=== PATIENT | female | born 1975 | race American Indian/Alaskan Native ===

== ENCOUNTER 2016-11-05 10:12 | Emergency (ER) | payer OTHER | END 2016-11-05 13:18 | disposition home or self-care (01) | DX: N23 Unspecified renal colic (principal); R03.0 Elevated blood-pressure reading, without diagnosis of hypertension; E28.2 Polycystic ovarian syndrome; Z90.49 Acquired absence of other specified parts of digestive tract ==

== ENCOUNTER 2018-02-02 21:44 | Emergency (ER) | payer OTHER ==
[2018-02-02 21:58] VITALS: BP 147/97
--- NOTE | 2018-02-02 22:46 | XRAY Preliminary Report ---
Exam: XR FOOT 3 VIEW LT IMPRESSION: Normal foot radiography. [facility] SITE ID: [id number]
--- NOTE | 2018-02-02 22:46 | XRAY Report ---
EXAM: LEFT FOOT RADIOGRAPHY EXAM DATE: 02/02/2018 10:36 PM. CLINICAL HISTORY: L foot pain, unknown if injury. COMPARISON: None. TECHNIQUE: 3 views. FINDINGS: Bones: Normal. No fractures or bone lesions. Joints: Normal. No subluxations. Soft Tissues: Normal. No soft tissue swelling. IMPRESSION: Normal foot radiography. [facility] Referring Provider Line: [phone] SITE ID: [id number]
--- NOTE | 2018-02-02 22:59 | ED Physician Documentation ---
History of Present Illness - Stated complaint Stated Complaint: LT FOOT PX - Chief complaint Chief Complaint: Ext Problem - History obtained from History obtained from: Patient - History of Present Illness Timing: Today, How many days ago (3) Pain level max: 7 Pain level now: 4 Improved by: rest Worsened by: walking - Additonal information Additional information: Patient is a 42-year-old female who presents to the emergency department with worsening left foot pain over the past 3-4 days. She does not recall any specific injury, states it is worse with walking and better with rest. States she is now unable to walk without a significant limp. States she has fracture either her left or right foot in the past but is unclear which. 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 - Present Medications Home Medications: Ambulatory Orders Medication Instructions Recorded Confirmed metFORMIN [Glucophage] 500 mg PO BID 06/27/14 02/02/18 Acyclovir 400 mg ORAL BID 11/05/16 02/02/18 Bupropion HCl [Bupropion Xl] 150 mg ORAL DAILY 11/05/16 02/02/18 cloNIDine HCl [Clonidine HCl] 0.1 mg ORAL QPM 11/05/16 02/02/18 Loratadine [Claritin] 1 tab PO DAILY 02/02/18 02/02/18 - Allergies Allergies/Adverse Reactions: Allergies Allergy/AdvReac Type Severity Reaction Status Date / Time hydromorphone [From Dilaudid] AdvReac Unknown Verified 02/02/18 22:07 - Social History Does the pt smoke?: No Smoking Status: Former smoker Does the pt drink ETOH?: Yes ETOH Use: Liquor Does the pt have substance abuse?: No - Immunizations Immunizations are current?: Yes - POLST Patient has POLST: No PD ED PE NORMAL - Vitals Vital signs reviewed: Yes - General General: Alert and oriented X 3, No acute distress - Derm Derm: Warm and dry - Extremities Extremities: Other (Left foot - Mild tenderness along the plantar aspect of the left foot. Pain greatly increases with flexion of the ankle as well as extension of the great toe.She also has mild bony tenderness over the first metatarsal. No skin changes. No deformity. Neurovascularly intact.) - Neuro Neuro: Alert and oriented X 3 - Psych Psych: Normal mood, Normal affect Results - Vitals Vitals: Vital Signs - 24 hr 02/02/18 21:50 Temperature 36.2 C L Heart Rate 89 Respiratory 18 Rate Blood Pressure 147/97 H O2 Saturation 98 Oxygen O2 Source Room air - Rads (name of study) Left foot x-ray Radiology: Prelim report reviewed, EMP read contemporaneously, See rad report ( Normal) PD MEDICAL DECISION MAKING - ED course Complexity details: reviewed results, re-evaluated patient, considered differential, d/w patient ED course: Patient is a 42-year-old female who presents to the emergency department what appears to be a left foot sprain. Does not appear consistent with plantar fasciitis at this time. Placed in a walking boot for comfort is a postoperative shoe did not provide enough support. This provided her the needed relief. She will utilize Motrin and Tylenol for pain at home. Counseled to remove her foot from the boot in the next 2-3 days and start to gently range the foot and ankle, gradually increasing her weightbearing status. We will have her follow-up with her PCP for further care. Patient counseled regarding signs and symptoms for which I believe and urgent re-evaluation would be necessary. Patient with good understanding of and agreement to plan and is comfortable going home at this time This document was made in part using voice recognition software. While efforts are made to proofread this document, sound alike and grammatical errors may occur. Departure - Departure Disposition: 01 Home, Self Care Clinical Impression: Foot sprain Qualifiers: Encounter type: initial encounter Laterality: left Qualified Code(s): S93.602A - Unspecified sprain of left foot, initial encounter Condition: Good Instructions: ED Sprain Foot Follow-Up: CLARISSA FOREMAN [Primary Care Provider] - Within 1 week Comments: Wear the boot for the next 3-4 days, then start to gently move your foot and ankle. You may bear weight as tolerated. Follow-up with your doctor for further care. You may use Motrin or Tylenol as needed for pain. Discharge Date/Time: 02/02/18 23:25
== END 2018-02-02 23:25 | disposition home or self-care (01) ==
LOC: ED 21:44
DX: S93.602A Unspecified sprain of left foot, initial encounter (principal); X58.XXXA Exposure to other specified factors, initial encounter; Z87.891 Personal history of nicotine dependence
CPT/HCPCS: 99283

== ENCOUNTER 2018-08-07 08:40 | Emergency (ER) | payer OTHER ==
[2018-08-07] MEDS ORDERED: KETOROLAC 60 MG/2 ML VIAL IM STA (09:05)
[2018-08-07] MEDS ORDERED: LIDOCAINE PATCH 5% TOP PRN (09:05)
--- NOTE | 2018-08-07 09:18 | ED Physician Documentation ---
History of Present Illness - Stated complaint Stated Complaint: RT SIDE BACK PX - Chief complaint Chief Complaint: Back Pain - Additonal information Additional information: hx from pt 42 y/o f in good health recent plane travel but no leg swelling or hx DVT was in good health having totally normally day standing around talking to coworkers when she was suddenly struck by severe upper right back pain worse with breathing states feels like she is being stabbed with a spike no fever cough etc recently no ant chest pain no abd pain denies preg s/p tubal Review of Systems Constitutional: denies: Fever Throat: denies: Sore throat Cardiac: denies: Chest pain / pressure Respiratory: denies: Dyspnea, Cough GI: denies: Abdominal Pain : reports: Control (tubal). 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 - Present Medications Home Medications: Ambulatory Orders Medication Instructions Recorded Confirmed metFORMIN [Glucophage] 500 mg PO BID 06/27/14 02/02/18 Acyclovir 400 mg ORAL BID 11/05/16 02/02/18 Bupropion HCl [Bupropion Xl] 150 mg ORAL DAILY 11/05/16 02/02/18 cloNIDine HCl [Clonidine HCl] 0.1 mg ORAL QPM 11/05/16 02/02/18 Loratadine [Claritin] 1 tab PO DAILY 02/02/18 02/02/18 Cyclobenzaprine [Flexeril] 10 mg PO TID PRN #20 tablet 08/07/18 Ibuprofen [Motrin] 400 mg PO Q6H PRN #30 tablet 08/07/18 Lidocaine Patch 5% [Lidoderm Patch] 1 each TOP DAILY PRN #10 patch 08/07/18 - Allergies Allergies/Adverse Reactions: Allergies Allergy/AdvReac Type Severity Reaction Status Date / Time hydromorphone [From Dilaudid] AdvReac Unknown Verified 08/07/18 08:47 - Social History Does the pt smoke?: No Smoking Status: Never smoker Does the pt drink ETOH?: Yes Does the pt have substance abuse?: No - Immunizations Immunizations are current?: Yes - POLST Patient has POLST: No PD ED PE NORMAL - Vitals Vital signs reviewed: Yes - Cardiac Cardiac: RRR - Respiratory Respiratory: No respiratory distress, Clear bilaterally - Abdomen Abdomen: Soft, Non tender - Back Back: Other (marked TTP R upper back just lateral of midline, no focal spine TTP redness swelling) - Derm Derm: Normal color - Extremities Extremities: No edema, No calf tenderness / cord - Neuro Neuro: No motor deficit, No sensory deficit, Normal speech Results - Vitals Vitals: Vital Signs - 24 hr 08/07/18 08/07/18 08:45 10:17 Temperature 36.4 C L Heart Rate 86 58 L Respiratory 15 16 Rate Blood Pressure 133/80 H 116/74 O2 Saturation 95 99 Oxygen O2 Source Nasal cannula - Labs Labs: Laboratory Tests 08/07/18 08/07/18 08/07/18 09:28 09:29 09:29 D-Dimer < 200.0 L Creatinine 0.6 Estimated GFR (MDRD) 110 Urine Color YELLOW Urine Clarity CLEAR Urine pH 6.0 Ur Specific [place] 1.010 Urine Protein NEGATIVE Urine Glucose (UA) NEGATIVE Urine Ketones NEGATIVE Urine Occult Blood TRACE-INTA Urine Nitrite NEGATIVE Urine Bilirubin NEGATIVE Urine Urobilinogen 0.2 (NORMAL) Ur Leukocyte Esterase NEGATIVE Ur Microscopic Review NOT INDICATED Urine Culture Comments NOT INDICATED Urine HCG, Qual NEGATIVE - Rads (name of study) CXR Radiology: See rad report (nl, no pneumo, nl mediastinum, no cap or effusion) PD MEDICAL DECISION MAKING - ED course ED course: abrupt onset upper right back pain no abd pain TTP to suggest a referred pain from abd process plane trip but no leg swelling and neg d dimer so doubt PE considered dissection - but aorta appears nl on CXR and pt does not have risk factors and she is very TTP upper right back and feels better when she stays still in a certain position - so feel this to be unlikely as well based on exam, likely muscular though no inciting event to cause same will tx symptomatically when dc pt I have her a note for work and 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 so were moving boxes so perhaps that is how she got her muscular back pain she felt much better after pain meds in ED SO driving Departure - Departure Disposition: 01 Home, Self Care Clinical Impression: Back pain Qualifiers: Back pain location: thoracic back pain Chronicity: acute Back pain laterality: right Qualified Code(s): M54.6 - Pain in thoracic spine Condition: Good Instructions: ED Neck Back Pain General Follow-Up: CLARISSA FOREMAN [Primary Care Provider] - Prescriptions: Cyclobenzaprine [Flexeril] 10 mg PO TID PRN #20 tablet PRN Reason: Spasms Ibuprofen [Motrin] 400 mg PO Q6H PRN #30 tablet PRN Reason: Pain Lidocaine Patch 5% [Lidoderm Patch] 1 each TOP DAILY PRN #10 patch PRN Reason: Pain Comments: The blood test to see if you might have a blood clot in your lungs was negative The xray did not show a collapsed lung or aneurysm of your aorta. You are quite tender to palpate on exam - so i think this pain is soft tissue / muscular I have prescribed symptomatic medications to ease the pain and written you a note for work Forms: Activity restrictions
[2018-08-07 09:41] LABS: CREATININE 0.6 mg/dL (0.4-1.0)
[2018-08-07 09:55] LABS: BILIRUBIN,URINE NEGATIVE (NEGATIVE); GLUCOSE, URINE (UA) NEGATIVE (NEGATIVE); KETONES,URINE (UA) NEGATIVE (NEGATIVE); LEUKOCYTE ESTERASE, URINE NEGATIVE (NEGATIVE); NITRITE,URINE NEGATIVE (NEGATIVE); OCCULT BLOOD,URINE TRACE-INTA (NEGATIVE); PROTEIN,URINE NEGATIVE (NEGATIVE); UROBILINOGEN,URINE 0.2 (NORMAL) E.U./dL (NORMAL)
[2018-08-07 09:58] LABS: CLARITY,URINE CLEAR (CLEAR); HCG UR QUAL NEGATIVE
--- NOTE | 2018-08-07 10:15 | XRAY Report ---
Reason: severe r upper pleuritic back pain Procedure Date: 08/07/2018 Accession Number: [id number] / [id number] Procedure: XR - Chest 2 View X-Ray CPT Code: 07587 FULL RESULT: EXAM: CHEST RADIOGRAPHY EXAM DATE: 08/07/2018 09:58 AM. CLINICAL HISTORY: Severe right upper pleuritic back pain. COMPARISON: 07/12/2014. TECHNIQUE: 2 views. FINDINGS: Lungs/Pleura: No focal opacities evident. No pleural effusion. No pneumothorax. Normal volumes. Mediastinum: Heart and mediastinal contours are unremarkable. Other: Status post cholecystectomy is noted. IMPRESSION: Normal 2-view chest radiography. [facility]
[2018-08-07 10:17] VITALS: BP 116/74
[2018-08-07] MEDS ORDERED: CYCLOBENZAPRINE 10 MG TABLET PO STA (10:57)
== END 2018-08-07 11:06 | disposition home or self-care (01) ==
LOC: ED 08:40
DX: M54.6 Pain in thoracic spine (principal)
CPT/HCPCS: 36415; 71046; 81003; 81025; 82565; 85379; 96372; 99283; A9270; 81001; 87086

== ENCOUNTER 2018-12-18 18:00 | Emergency (ER) | payer OTHER ==
[2018-12-18 18:18] VITALS: BP 131/92
[2018-12-18] MEDS ORDERED: IBUPROFEN 800 MG TABLET PO STA (18:46)
--- NOTE | 2018-12-18 18:47 | ED Physician Documentation ---
PD HPI URI - Stated complaint Stated Complaint: FLU SYMPT/COUGH X3 WEEKS - Chief complaint Chief Complaint: Resp - History obtained from History obtained from: Patient - History of Present Illness Timing - onset: Today (She has had a cough for a month, it really was not too bad it was getting better, but got a little worse 2 days ago with more runny nose. Today suddenly started having chills and sweats and body aches as well as difficulty focusing on things.) Review of Systems Constitutional: reports: Fever, Chills, Myalgias, Fatigue Eyes: denies: Loss of vision Ears: denies: Drainage/discharge Nose: reports: Rhinorrhea / runny nose Throat: denies: Sore throat Respiratory: reports: Cough. 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 - Present Medications Home Medications: Ambulatory Orders Medication Instructions Recorded Confirmed metFORMIN [Glucophage] 500 mg PO BID 06/27/14 02/02/18 Acyclovir 400 mg ORAL BID 11/05/16 02/02/18 Bupropion HCl [Bupropion Xl] 150 mg ORAL DAILY 11/05/16 02/02/18 cloNIDine HCl [Clonidine HCl] 0.1 mg ORAL QPM 11/05/16 02/02/18 Loratadine [Claritin] 1 tab PO DAILY 02/02/18 02/02/18 Cyclobenzaprine [Flexeril] 10 mg PO TID PRN #20 tablet 08/07/18 Ibuprofen [Motrin] 400 mg PO Q6H PRN #30 tablet 08/07/18 Lidocaine Patch 5% [Lidoderm Patch] 1 each TOP DAILY PRN #10 patch 08/07/18 Oseltamivir [Tamiflu] 75 mg PO BID #10 capsule 12/18/18 guaiFENesin/CODEINE [Robitussin AC] 5 - 10 ml PO Q6H PRN #120 ml 12/18/18 - Allergies Allergies/Adverse Reactions: Allergies Allergy/AdvReac Type Severity Reaction Status Date / Time hydromorphone [From Dilaudid] AdvReac Unknown Verified 12/18/18 18:17 - Social History Does the pt smoke?: No Smoking Status: Never smoker Does the pt drink ETOH?: Yes Does the pt have substance abuse?: No - Immunizations Immunizations are current?: Yes - POLST Patient has POLST: No PD ED PE NORMAL - Vitals Vital signs reviewed: Yes (tachy) - General General: Alert and oriented X 3, No acute distress - HEENT HEENT: PERRL, Ears normal, Pharynx benign - Neck Neck: Supple, no meningeal sign, No bony TTP - Cardiac Cardiac: RRR, No murmur - Respiratory Respiratory: No respiratory distress, Clear bilaterally - Abdomen Abdomen: Non tender - Derm Derm: No rash - Neuro Neuro: Alert and oriented X 3, Normal speech Results - Vitals Vitals: Vital Signs - 24 hr 12/18/18 12/18/18 18:15 18:17 Temperature 37.9 C H Heart Rate 126 H Respiratory 20 16 Rate Blood Pressure 131/92 H O2 Saturation 98 Oxygen O2 Source Room air - Labs Labs: Laboratory Tests 12/18/18 18:40 Influenza A (Rapid) POSITIVE H Influenza B (Rapid) Negative - Rads (name of study) 2v chest Radiology: EMP read contemporaneously (NAD) Departure - Departure Disposition: Home, Self Care Clinical Impression: Influenza A Condition: Good Record reviewed to determine appropriate education?: Yes Instructions: Medication: Tamiflu (Oseltamivir), ED Flu Prescriptions: guaiFENesin/CODEINE [Robitussin AC] 5 - 10 ml PO Q6H PRN #120 ml PRN Reason: Cough Oseltamivir [Tamiflu] 75 mg PO BID #10 capsule Comments: Recheck with your doctor on Saturday if not better, return for new or worsening symptoms. Continue drinking plenty of fluids and taking ibuprofen as needed for the fevers and aches. Forms: Activity restrictions
--- NOTE | 2018-12-18 19:13 | XRAY Report ---
Reason: cough Procedure Date: 12/18/2018 Accession Number: [id number] / [id number] Procedure: XR - Chest 2 View X-Ray CPT Code: 03662 FULL RESULT: EXAM: CHEST RADIOGRAPHY EXAM DATE: 12/18/2018 07:04 PM. CLINICAL HISTORY: Cough. COMPARISON: CHEST 2 VIEW 08/07/2018 9:40 AM. TECHNIQUE: 2 views. FINDINGS: Lungs/Pleura: No focal opacities evident. No pleural effusion. No pneumothorax. Normal volumes. Mediastinum: Heart and mediastinal contours are unremarkable. Other: None. IMPRESSION: Negative chest. Clear lungs. [facility]
== END 2018-12-18 19:22 | disposition home or self-care (01) ==
LOC: ED 18:00
DX: J10.1 Influenza due to other identified influenza virus with other respiratory manifestations (principal)
CPT/HCPCS: 71046; 87275; 87276; 99283; A9270

== ENCOUNTER 2020-11-24 08:48 | Emergency (ER) | payer OTHER ==
--- NOTE | 2020-11-24 09:30 | XRAY Report ---
PROCEDURE: Foot 3 View RT INDICATIONS: Trauma TECHNIQUE: 3 views of the foot were acquired. COMPARISON: None FINDINGS: Bones: No fractures or dislocations. No suspicious bony lesions. Plantar calcaneal bone spur. Soft tissues: No tibiotalar joint effusion. Achilles tendon appears normal. IMPRESSION: No fracture. No acute osseous lesion. If there are persistent symptoms or continued clinical concern for pathology, then repeat plain film radiographs (7-10 days) or advanced imaging (CT, MR, bone scan) should be considered for further evaluation. Reviewed by: Anne Oneal MD, PhD on 11/24/2020 9:29 AM [facility] Approved by: Anne Oneal MD, PhD on 11/24/2020 9:29 AM [facility] Station ID: [id number]
--- NOTE | 2020-11-24 10:12 | ED Physician Documentation ---
History of Present Illness - Stated complaint Stated Complaint: R FOOT PX - Chief complaint Chief Complaint: Ext Problem - History obtained from History obtained from: Patient - Additonal information Additional information: 45-year-old woman history of PCOS on Metformin, no history of diabetes or other immunocompromising conditions presents with right first toe pain sudden onset when getting up from her desk chair 2 days ago. Atraumatic, constant, localized to the right first toe, worse with bending the toe, associated with worsening swelling, mild to moderate severity. Denies fevers, other injury, numbness or weakness. Review of Systems Constitutional: denies: Fever Skin: denies: Lesions Musculoskeletal: reports: Extremity pain, Joint pain Neurologic: denies: Focal weakness PD PAST MEDICAL HISTORY - Past Medical History Past Medical History: Yes Cardiovascular: Murmur Psych: Depression, Post traumatic stress disorder Musculoskeletal: Osteoarthritis - Past Surgical History Past Surgical History: Yes General: Cholecystectomy /LOT BOSS: Tubal ligation - Present Medications Home Medications: Ambulatory Orders Medication Instructions Recorded Confirmed metFORMIN [Glucophage] 500 mg PO BID 06/27/14 11/24/20 Acyclovir 400 mg ORAL BID 11/05/16 11/24/20 buPROPion HCL [Bupropion Xl] 150 mg ORAL DAILY 11/05/16 11/24/20 cloNIDine HCL [Clonidine HCl] 0.1 mg ORAL QPM 11/05/16 11/24/20 Loratadine [Claritin] 1 tab PO DAILY 02/02/18 11/24/20 Ibuprofen [Motrin] 400 mg PO Q6H PRN #30 tablet 08/07/18 11/24/20 - Allergies Allergies/Adverse Reactions: Allergies Allergy/AdvReac Type Severity Reaction Status Date / Time hydromorphone [From Dilaudid] AdvReac Unknown Verified 11/24/20 08:59 - Social History Does the pt smoke?: No Smoking Status: Never smoker Does the pt drink ETOH?: Yes Does the pt have substance abuse?: No - Immunizations Immunizations are current?: Yes - POLST Patient has POLST: No PD ED PE NORMAL - Vitals Vital signs reviewed: Yes - General General: Alert and oriented X 3, No acute distress, Well developed/nourished - Derm Derm: Normal color, Warm and dry, Other (mild ecchymosis to R first toe with mild swelling to dorsum of toe) - Extremities Extremities: No deformity, Other (tender with flexion of R first toe) - Neuro Neuro: Alert and oriented X 3, No motor deficit, No sensory deficit, Other ( normal sensation. 2+ DP and PT pulses) Results - Vitals Vitals: Vital Signs - 24 hr 11/24/20 08:56 Temperature 36.3 C L Heart Rate 64 Respiratory 16 Rate Blood Pressure 145/97 H O2 Saturation 100 Oxygen O2 Source Room air PD MEDICAL DECISION MAKING - ED course ED course: 45-year-old woman presents with likely ligament strain. Xrays show no fracture. Ambulatory on the toe without difficulty. Discussed conservative home management techniques and gave strict return precautions. Patient will follow up with orthopedics. Departure - Departure Disposition: 01 Home, Self Care Clinical Impression: Swelling of toe of right foot, Toe pain, right Condition: Good Instructions: ED RICE Follow-Up: Ignacio Lugo MD [Provider Admit Priv/Credential] - Comments: You were seen in the emergency department for right first toe swelling, and pain. Your x-rays did not show a break in the bone. It is likely that this is a ligament strain. Follow the directions we discussed and return to the emergency department if you have any signs of infection that we went over, or new or worsening symptoms. follow up with orthopedics in 1 week.
[2020-11-24 10:22] VITALS: BP 134/78
== END 2020-11-24 10:22 | disposition home or self-care (01) ==
LOC: ED 08:48
DX: M79.674 Pain in right toe(s) (principal); R22.41 Localized swelling, mass and lump, right lower limb
CPT/HCPCS: 99282; 99283

== ENCOUNTER 2022-08-09 12:57 | Emergency (ER) | payer OTHER ==
[2022-08-09 13:45] LABS: BASOPHILS # (AUTO) 0.1 10^3/uL (0.0-0.1); BASOPHILS % (AUTO) 1.2 %; EOSINOPHILS # (AUTO) 0.1 10^3/uL (0.0-0.7); EOSINOPHILS % (AUTO) 3.1 %; HCT - HEMATOCRIT 38.8 % (37.0-47.0); HGB - HEMOGLOBIN 12.8 g/dL (12.0-16.0); LYMPHOCYTES # (AUTO) 1.3 10^3/uL (1.5-3.5); LYMPHOCYTES % (AUTO) 31.5 %; MEAN CORPUSCULAR HEMOGLOBIN 33.3 pg (27.0-31.0); MEAN PLATELET VOLUME 10.5 fL (7.9-10.8); MONOCYTES # (AUTO) 0.4 10^3/uL (0.0-1.0); MONOCYTES % (AUTO) 10.1 %; NEUTROPHILS # (AUTO) 2.3 10^3/uL (1.5-6.6); NEUTROPHILS % (AUTO) 53.9 %; PLT - PLATELET COUNT 271 10^3/uL (130-450); RED BLOOD COUNT 3.84 10^6/uL (4.20-5.40); WHITE BLOOD COUNT 4.3 x10^3/uL (4.8-10.8)
--- NOTE | 2022-08-09 13:59 | XRAY Report ---
PROCEDURE: Chest 1 View X-Ray INDICATIONS: Chest pain TECHNIQUE: One view of the chest was acquired. COMPARISON: 12/10/2018 FINDINGS: Surgical changes and devices: None. Lungs and pleura: No pleural effusions or pneumothorax. Lungs are clear. Mediastinum: Mediastinal contours appear normal. Heart size is normal. Bones and chest wall: No suspicious bony lesions. Overlying soft tissues appear unremarkable. IMPRESSION: No acute radiographic abnormality. Reviewed by: Marcio Marroquin MD on 08/09/2022 1:58 PM PDT Approved by: Marcio Marroquin MD on 08/09/2022 1:58 PM PDT Station ID: [id number]
[2022-08-09 14:04] LABS: ALBUMIN 4.2 g/dL (3.2-5.5); ALBUMIN/GLOBULIN RATIO 1.4 (1.0-2.2); BILIRUBIN,TOTAL 0.3 mg/dL (0.2-1.0); CALCIUM 9.8 mg/dL (8.5-10.3); CREATININE 0.7 mg/dL (0.4-1.0); POTASSIUM 4.3 mmol/L (3.5-5.0); TOTAL PROTEIN 7.3 g/dL (6.7-8.2)
[2022-08-09] MEDS ORDERED: FAMOTIDINE 20 MG TABLET PO STA (14:44)
[2022-08-09] MEDS ORDERED: SUCRALFATE 1 GM/10 ML UDC PO STA (14:44)
[2022-08-09] MEDS ORDERED: LIDOCAINE VISCOUS 2% 15 ML UDC MM STA (14:44)
[2022-08-09] MEDS ORDERED: MAG HYDROX/AL HYDROX/SIMETH 30 ML UDC PO STA (14:44)
--- NOTE | 2022-08-09 14:52 | ED Physician Documentation ---
History of Present Illness - Stated complaint Stated Complaint: CHEST PX - Chief complaint Chief Complaint: Cardiac - History obtained from History obtained from: Patient, Family - History of Present Illness Timing: How many hours ago (3) Pain level max: 9 Pain level now: 2 - Additonal information Additional information: Patient is a 46-year-old female who presents to the emergency department complaining of chest pain. She states that it started today at about noon. She states it felt like someone was squeezing her center of her chest. Nothing seemed to make it better or worse. Lasted for about an hour. She states now it just feels like there is a dull, aching pressure. Does not have any history of cardiac disease that she is aware of. She has had a cholecystectomy in the past. She states she occasionally uses alcohol. She does not smoke cigarettes daily. She is diabetic. Nothing seemed to make it better or worse. Review of Systems Constitutional: denies: Fever, Chills Throat: denies: Sore throat Cardiac: reports: Chest pain / pressure (Center of the chest, nonradiating, feels like a squeezing). 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 - Present Medications Home Medications: Ambulatory Orders Medication Instructions Recorded Confirmed metFORMIN [Glucophage] 500 mg PO BID 06/27/14 11/24/20 Acyclovir 400 mg ORAL BID 11/05/16 11/24/20 buPROPion HCL [Bupropion Xl] 150 mg ORAL DAILY 11/05/16 11/24/20 cloNIDine HCL [Clonidine HCl] 0.1 mg ORAL QPM 11/05/16 11/24/20 Loratadine [Claritin] 1 tab PO DAILY 02/02/18 11/24/20 Ibuprofen [Motrin] 400 mg PO Q6H PRN #30 tablet 08/07/18 11/24/20 Esomeprazole Magnesium [Nexium] 40 mg PO DAILY #30 cap 08/09/22 Sucralfate [Carafate] 1 gm PO ACHS #60 tablet 08/09/22 - Allergies Allergies/Adverse Reactions: Allergies Allergy/AdvReac Type Severity Reaction Status Date / Time hydromorphone [From Dilaudid] AdvReac Unknown Verified 08/09/22 13:24 - Social History Does the pt smoke?: No Smoking Status: Never smoker Does the pt drink ETOH?: Yes Does the pt have substance abuse?: No - Immunizations Immunizations are current?: Yes - POLST Patient has POLST: No PD ED PE NORMAL - Vitals Vital signs reviewed: Yes - General General: Alert and oriented X 3, No acute distress - HEENT HEENT: PERRL, Moist mucous membranes - Neck Neck: Supple, no meningeal sign - Cardiac Cardiac: RRR, Strong equal pulses - Respiratory Respiratory: No respiratory distress, Clear bilaterally - Abdomen Abdomen: Normal bowel sounds, Soft, Non distended, Other (Tender to palpation epigastric without peritoneal signs.) - Derm Derm: Warm and dry - Extremities Extremities: No edema, No calf tenderness / cord - Neuro Neuro: Alert and oriented X 3 - Psych Psych: Normal mood, Normal affect Results - Vitals Vitals: Vital Signs - 24 hr 08/09/22 08/09/22 08/09/22 13:20 13:54 14:24 Temperature 36.7 C Heart Rate 79 73 81 Respiratory 14 19 18 Rate Blood Pressure 151/97 H 140/87 H 133/88 H O2 Saturation 100 98 99 08/09/22 08/09/22 08/09/22 15:00 15:30 17:07 Temperature Heart Rate 68 68 73 Respiratory 21 19 20 Rate Blood Pressure 132/88 H 135/89 H 134/90 H O2 Saturation 100 99 100 Oxygen O2 Source Room air - EKG (time done) 1329 Rate: Rate (enter#) (71) Rhythm: NSR [place]: Normal Intervals: Normal [place] QRS: Normal Ischemia: Normal ST segments - Labs Labs: Laboratory Tests 08/09/22 08/09/22 08/09/22 13:41 13:41 13:41 WBC 4.3 L RBC 3.84 L Hgb 12.8 Hct 38.8 MCV 101.0 H MCH 33.3 H MCHC 33.0 RDW 13.0 Plt Count 271 MPV 10.5 Neut # (Auto) 2.3 Lymph # (Auto) 1.3 L [place] # (Auto) 0.4 Eos # (Auto) 0.1 Baso # (Auto) 0.1 Absolute Nucleated RBC 0.00 Nucleated RBC % 0.0 Sodium 144 Potassium 4.3 Chloride 107 Carbon Dioxide 30 Anion Gap 7.0 BUN 14 Creatinine 0.7 Estimated GFR (MDRD) 90 Glucose 95 Calcium 9.8 Total Bilirubin 0.3 AST 15 ALT 13 Alkaline Phosphatase 65 Troponin I High Sens < 2.3 L Total Protein 7.3 Albumin 4.2 Globulin 3.1 Albumin/Globulin Ratio 1.4 Lipase 54 H 08/09/22 15:30 WBC RBC Hgb Hct MCV MCH MCHC RDW Plt Count MPV Neut # (Auto) Lymph # (Auto) [place] # (Auto) Eos # (Auto) Baso # (Auto) Absolute Nucleated RBC Nucleated RBC % Sodium Potassium Chloride Carbon Dioxide Anion Gap BUN Creatinine Estimated GFR (MDRD) Glucose Calcium Total Bilirubin AST ALT Alkaline Phosphatase Troponin I High Sens < 2.3 L Total Protein Albumin Globulin Albumin/Globulin Ratio Lipase - Rads (name of study) Chest x-ray Radiology: Final report received, EMP read contemporaneously, See rad report (No acute abnormality) PD MEDICAL DECISION MAKING - ED course Complexity details: reviewed results, re-evaluated patient, considered differential (No ST elevation PA, no aortic dissection, no PE, no tension pneumothorax, no aortic aneurysm), d/w patient ED course: Patient is well-appearing, nontoxic. Afebrile. No acute findings on EKG. Negative high-sensitivity troponin x2. Symptoms improved with GI cocktail. Possible GERD? We will start her on medication for this at home and have her follow-up with her doctor for a cardiac stress test and endoscopy. Patient counseled regarding signs and symptoms for which I believe and urgent re- evaluation would be necessary. Patient with good understanding of and agreement to plan and is comfortable going home at this time This document was made in part using voice recognition software. While efforts are made to proofread this document, sound alike and grammatical errors may occur. Departure - Departure Disposition: Home, Self Care Clinical Impression: Chest pain Qualifiers: Chest pain type: unspecified Qualified Code(s): R07.9 - Chest pain, unspecified GERD (gastroesophageal reflux disease) Qualifiers: Esophagitis presence: without esophagitis Qualified Code(s): K21.9 - Gastro-esophageal reflux disease without esophagitis Condition: Good Instructions: ED GERD Follow-Up: TAYA FINLEY MD [Primary Care Provider] - Within 1 week Prescriptions: Sucralfate [Carafate] 1 gm PO ACHS #60 tablet Esomeprazole Magnesium [Nexium] 40 mg PO DAILY #30 cap Comments: Your prescriptions were sent to the [facility] pharmacy. Please use the medications as prescribed. Return if you worsen. Please follow-up with your doctor for a cardiac stress test as well. Your EKG, chest x-ray and laboratory testing do not show any acute abnormalities today. Your doctor should also refer you for an endoscopy to evaluate for GERD/ulcers. Discharge Date/Time: 08/09/22 17:08
[2022-08-09 17:08] VITALS: BP 134/90
== END 2022-08-09 17:08 | disposition home or self-care (01) ==
LOC: ED 12:57
DX: R07.9 Chest pain, unspecified (principal); K21.9 Gastro-esophageal reflux disease without esophagitis
CPT/HCPCS: 36415; 71045; 80053; 83690; 84484; 85025; 93005; 99284; A9270

== ENCOUNTER 2022-09-02 00:17 | Outpatient (CLI) | payer OTHER | END 2022-09-02 23:59 | disposition left against medical advice (07) | LOC: EMS 00:17 | DX: R45.851 Suicidal ideations (principal) ==

== ENCOUNTER 2022-11-28 22:23 | Outpatient (CLI) | payer OTHER ==
--- NOTE | 2022-11-29 14:11 | Ultrasound Report ---
PROCEDURE: Pelvic w/Transvaginal INDICATIONS: ABN UTERINE BLEEDING TECHNIQUE: Real-time scanning was performed of the pelvic organs, with image documentation. Additional endovagi nal scanning was necessary due to incomplete visualization of the adnexal and endometrial structures by transabdominal scanning. COMPARISON: None. FINDINGS: Uterus: Uterus is anteverted and normal in size at 7.5 x 3.9 x 4.9 cm. The myometrium is moderately heterogeneous. There is an anterior subendometrial cystic structure measuring 0.9 x 0.5 x 0.7 cm.. The endometrium measures 5 mm in combined thickness. Endometrial margin is indistinct Ovaries: The right ovary measures approximately 1.2 x 1.2 x 1.4 cm, with a calculated ovarian volume of 1.0 cc. The left ovary measures approximately 2.0 x 1.4 x 1.5 cm, with a calculated ovarian volu me of 2.3 cc. The ovaries have a normal sonographic appearance. Less than 12 follicles can be seen in each ovary. No adnexal masses are seen. Other: No pathologic free abdominal or pelvic fluid. IMPRESSION: 1. Heterogeneous uterus with an indistinct endometrial contour and subendometrial cyst. Findings are suspicious for adenomyosis. Correlate clinically. Reviewed by: Dana Almanza MD on 11/29/2022 2:10 PM PST Approved by: Dana Almanza MD on 11/29/2022 2:10 PM PST Station ID: [id number]
== END 2022-11-28 22:24 | disposition home or self-care (01) ==
LOC: DI 22:23
PROVIDERS: ATTEND Obstetrics & Gynecology
DX: N93.8 Other specified abnormal uterine and vaginal bleeding (principal); N85.8 Other specified noninflammatory disorders of uterus

== ENCOUNTER 2023-01-22 10:38 | Outpatient (CLI) | payer OTHER ==
--- NOTE | 2023-01-22 12:59 | CARDIAC PROCEDURE NOTE ---
Stress Test Report Service Date: 01/22/23 Service Time: 11:00 [facility] Indication for Test: Chest pain, unspecified Significant Medical History: This patient has a history of a heart murmur and her Echo in 2013 showed "a hole". No Echo was ordered with this treadmill test. Cardiac Risk Factors: Polycystic ovary syndrome, Cigarette smoker, Postmenopausal status, Family history of heart disease in mother. Also, patient is on Metformin for her polycystic ovary disease, not for Diabetes mellitus. Patient is on Clonidine for insomnia, not for hypertension. Type of Stress Test: Exercise Treadmill Test (ETT) Procedure: After signing informed consent, the patient underwent a Yosi-protocol treadmill stress test. Resting heart rate: 69 Peak heart rate: 154 (88% predicted maximum heart rate for age). Resting blood pressure: 126/77 Peak blood pressure: 142/75 Peak rate- pressure product: 22,176. METS: 11.5 The patient exercised for 9 minutes and 51 seconds on a Yosi-protocol treadmill stress test. She had normal heart rate and blood pressure response to exercise. The patient rated her perceived exertion at 14-15/20 on the Phuc scale atpeak. The patient had moderate shortness of breath. She denied any chest pain. In immediate recovery, she used her asthma inhaler x2. Resting EKG Normal sinus rhythm, Left atrial enlargement, poor R wave progression. EKG at peak: No ischemic ST segment changes. Summary: 1. Normal treadmill exercise stress test at a good level of stress. 2. Good exercise tolerance. 3. No Echo was ordered with this test to evaluate her heart murmur and history of "a hole in her heart".
== END 2023-01-22 10:39 | disposition home or self-care (01) ==
LOC: DI 10:38
PROVIDERS: ATTEND Family Medicine
DX: R01.1 Cardiac murmur, unspecified (principal); R07.9 Chest pain, unspecified; E28.2 Polycystic ovarian syndrome; F17.210 Nicotine dependence, cigarettes, uncomplicated; Z78.0 Asymptomatic menopausal state; Z82.49 Family history of ischemic heart disease and other diseases of the circulatory system
CPT/HCPCS: 93016; 93017; 93018

== ENCOUNTER 2023-02-11 13:46 | Outpatient (CLI) | payer OTHER | END 2023-02-11 13:47 | disposition home or self-care (01) | LOC: LAB 13:46 | PROVIDERS: ATTEND Obstetrics & Gynecology | DX: Z01.812 Encounter for preprocedural laboratory examination (principal); R87.613 High grade squamous intraepithelial lesion on cytologic smear of cervix (HGSIL) | CPT/HCPCS: 86850; 86900; 86901 ==

== ENCOUNTER 2023-02-12 09:53 | Day surgery (SDC) | payer OTHER ==
[2023-02-12 10:11] LABS: HCG UR QUAL NEGATIVE
[2023-02-12] MEDS ORDERED: LACTATED RINGERS 1,000 ML IV ONE (10:17)
[2023-02-12] MEDS ORDERED: POTASSIUM IODIDE/IODINE 14 ML SOLUTION ONE (11:37)
[2023-02-12] MEDS ORDERED: BUPIVACAINE 0.25% PF 10 ML VIAL ONE (11:37)
--- NOTE | 2023-02-12 12:05 | ANESTHESIA ---
Pre-Anesthesia VS, & Labs - Diagnosis HSIL - Procedure LEEP Vital Signs: Temp Pulse Resp BP Pulse Ox O2 Flow Rate 36.5 C 62 16 124/77 100 02/12/23 10:18 02/12/23 10:18 02/12/23 10:18 02/12/23 10:18 02/12/23 10:18 Height: 5 ft 3 in Weight (kg): 71 kg Body Mass Index: 27.7 BMI Classification: Overweight - NPO >8 hours - Is Patient ?: No Home Medications and Allergies metFORMIN [Glucophage] 500 mg PO BID 06/27/14 Acyclovir 400 mg ORAL BID 11/05/16 buPROPion HCL [Bupropion Xl] 150 mg ORAL DAILY 11/05/16 cloNIDine HCL [Clonidine HCl] 0.1 mg ORAL QPM 11/05/16 Loratadine [Claritin] 1 tab PO DAILY 02/02/18 Albuterol Sulf [Ventolin Hfa Inhaler] 1 - 2 puffs INH Q4HR PRN 11/20/22 Ascorbic Acid [Vitamin C] 1,000 mg PO BID 11/20/22 Psyllium Husk [Metamucil] 0.4 gm PO DAILY 11/20/22 Vitamin E (Dl,Tocopheryl Acet) [Vitamin E] 180 mg PO TID 11/20/22 Allergies/Adverse Reactions: Allergies Allergy/AdvReac Type Severity Reaction Status Date / Time hydromorphone [From Dilaudid] AdvReac Unknown Verified 08/09/22 13:24 Anes History & Medical History - Anesthetic History Anesthesia Complications: reports: No previous complications - Medical History Cardiovascular: reports: Murmur (reports she had a work up at the [facility] with echo that showed a "hole in heart" said the bubble test showed bubbles that moved across the hole. Recent stress test was negative. Suspect PFO based on patient's description. She does has a systolic murmur, denies syncope or limitations in activites.) Pulmonary: reports: Asthma Gastrointestinal: reports: None Urinary: reports: None Neuro: reports: None Musculoskeletal: reports: None Endocrine/Autoimmune: reports: None Skin: reports: Eczema Smoking Status: Current some day smoker Psychosocial: reports: Alcohol (weekly) History of Cancer?: No - Surgical History General: reports: Cholecystectomy Gynecologic: reports: Tubal ligation Exam General: Alert, Oriented x3, Cooperative Dental: WNL Mouth Openin Fingerbreadth Neck Mobility: Normal Mallampati classification: II Thyromental Distance: 4-6 cm Respiratory: Lungs clear, Normal breath sounds, No respiratory distress, No accessory muscle use Cardiovascular: Other (systolic murmur) Mental/Cognitive Status: Alert/Oriented X3, Normal for patient Plan Anesthesia Type: General, MAC Consent for Procedure(s) Verified and Reviewed: Yes Code Status: Attempt Resuscitation ASA classification: 2-Mild systemic disease Is this case an emergency?: No
[2023-02-12] MEDS ORDERED: fentaNYL 100 MCG/2 ML VIAL ONE (12:13)
[2023-02-12] MEDS ORDERED: MIDAZOLAM 2 MG/2 ML VIAL ONE (12:13)
[2023-02-12] MEDS ORDERED: PROPOFOL 500 MG/50 ML 500 MG/50 ML VIAL ONE (12:14)
[2023-02-12] MEDS ORDERED: LACTATED RINGERS 100 ML IV ONE (13:13)
--- NOTE | 2023-02-12 13:15 | OPERATIVE REPORT ---
Operative Report - General Procedure Date: 02/12/23 Planned Procedure: LEEP Conization Pre-Op Diagnosis: H SHAGGY Procedure Performed: LEEP conization Post Op Diagnosis: H SHAGGY - Procedure Note Primary Surgeon: David Granados MD Secondary Surgeon: DAVIDA Anderson Anesthesia Provider: Kristie Garza CRNA Anesthesia Technique: Other (TIVA) Pathology: Anterior cervix Endocervical curettage IV Fluids (mL): 900 Estimated Blood Loss (mL): 5 Urine Output (mL): 20 Complications: None - Other Other Information/Narrative: Patient was taken to the operating room where total IV anesthesia was obtained. Patient was prepped and draped in a sterile fashion. Coated speculum was used to obtain visualization of the cervix. The anterior lip was grasped with a single-tooth tenaculum. A cervical block was performed using 4 cc local anesthesia. The electrocautery was set to a bland 30. Using a medium loop, a conization was performed approximately 3 cm in diameter. An endocervical curettage was then performed. Using the ball electrode, the cervix was hemostatic. After observing, small oozing spot in the posterior cervix was n oted and was coated with Monsel solution. The wound was hemostatic at that point. All instruments were removed from the vagina. The patient tolerated the procedure well and was taken to PACU in good condition.
[2023-02-12] MEDS ORDERED: BUPIVACAINE 0.25% PF 30 ML VIAL SUBQ ONE (13:29)
[2023-02-12] MEDS ORDERED: FERRIC SUBSULFATE 8 ML SOLUTION (FOR OR) TOP ONE (13:37)
[2023-02-12 13:43] VITALS: BP 150/80
--- NOTE | 2023-02-12 15:40 | ANESTHESIA POST OP EVALUATION ---
Anesthesia Post Eval - Post Anesthesia Eval Vitals: Last Vital Signs Temp 36.1 C L 02/12/23 13:30 Pulse 62 02/12/23 13:30 Resp 18 02/12/23 13:30 BP 150/80 H 02/12/23 13:30 Pulse Ox 99 02/12/23 13:30 O2 Flow Rate CV Function Including HR & BP: Stable Pain Control: Satisfactory Nausea & Vomiting: Negative Mental Status: Baseline Respiratory Status: Airway Patent Hydration Status: Satisfactory Anesthesia Complications: None
[2023-02-12] MEDS ORDERED: IBUPROFEN 600 MG TABLET PO SCH (18:00)
== END 2023-02-12 09:54 | disposition home or self-care (01) ==
LOC: SDS 09:53
PROVIDERS: ATTEND Obstetrics & Gynecology
PROC: 0UBC7ZX Excision of Cervix, Via Natural or Artificial Opening, Diagnostic (ICD-10-PCS; principal; 2023-02-12 11:15)
DX: R87.613 High grade squamous intraepithelial lesion on cytologic smear of cervix (HGSIL) (principal); R01.1 Cardiac murmur, unspecified; F17.200 Nicotine dependence, unspecified, uncomplicated
CPT/HCPCS: 57522; 81025; J7120

== ENCOUNTER 2023-06-03 14:31 | Emergency (ER) | payer OTHER ==
[2023-06-03 14:40] VITALS: BP 140/90; O2SAT 98
--- NOTE | 2023-06-03 15:38 | ED Physician Documentation ---
PD HPI HEENT - Stated complaint Stated Complaint: EAR PX - Chief complaint Chief Complaint: Heent - History obtained from History obtained from: Patient - History of Present Illness Timing - onset: How many days ago (several days of increasing sinus congestion and pressure with purulent drainage. Now also feeling pressure and pain in both ears. Recent travel from [facility] to here and felt discomfort over elevated areas.) Timing - duration: Days Timing - details: Gradual onset, Still present Location: Right ear, Left ear, Sinuses Associated symptoms: Congestion, Headache (frontal). No: Fever, Cough Recently seen: Not recently seen Review of Systems Constitutional: denies: Fever, Chills Ears: reports: Ear pain. denies: Drainage/discharge Nose: reports: Congestion, Sinus pressure / pain Throat: denies: Sore throat Respiratory: denies: Cough GI: denies: Vomiting, Diarrhea Skin: denies: Rash PD PAST MEDICAL HISTORY - Past Medical History Cardiovascular: Murmur (reports she had a work up at the [facility] with echo that showed a "hole in heart" said the bubble test showed bubbles that moved across the hole. Recent stress test was negative. Suspect PFO based on patient's description. 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 - Present Medications Home Medications: Ambulatory Orders Medication Instructions Recorded Confirmed metFORMIN [Glucophage] 500 mg PO BID 06/27/14 02/12/23 Acyclovir 400 mg ORAL BID 11/05/16 02/12/23 buPROPion HCL [Bupropion Xl] 150 mg ORAL DAILY 11/05/16 02/12/23 cloNIDine HCL [Clonidine HCl] 0.1 mg ORAL QPM 11/05/16 02/12/23 Loratadine [Claritin] 1 tab PO DAILY 02/02/18 02/12/23 Albuterol Sulf [Ventolin Hfa 1 - 2 puffs INH Q4HR PRN 11/20/22 02/01/23 Inhaler] Ascorbic Acid [Vitamin C] 1,000 mg PO BID 11/20/22 02/12/23 Psyllium Husk [Metamucil] 0.4 gm PO DAILY 11/20/22 02/12/23 Vitamin E (Dl,Tocopheryl Acet) 180 mg PO TID 11/20/22 02/12/23 [Vitamin E] Amoxicillin 500 mg PO TID #21 cap 06/03/23 Cetirizine [ZyrTEC] 10 mg PO BID #15 tablet 06/03/23 Fluticasone [Flonase] 1 sprays JADEN BID 20 Days #16 gm 06/03/23 - Allergies Allergies/Adverse Reactions: Allergies Allergy/AdvReac Type Severity Reaction Status Date / Time hydromorphone [From Dilaudid] AdvReac Unknown Verified 06/03/23 14:36 - Social History Does the pt smoke?: No Smoking Status: Current some day smoker Does the pt drink ETOH?: Yes Does the pt have substance abuse?: No - Immunizations Immunizations are current?: Yes - POLST Patient has POLST: No PD ED PE NORMAL - Vitals Vital signs reviewed: Yes - General General: Alert and oriented X 3, No acute distress, Well developed/nourished - HEENT HEENT: No: Ears normal (fluid and pressure both TMs. Not erythematous. ) - Neck Neck: Supple, no meningeal sign, No adenopathy - Cardiac Cardiac: RRR, Other (1/6 murmur systolic left chest. ) - Respiratory Respiratory: No respiratory distress, Clear bilaterally - Derm Derm: Normal color, Warm and dry - Neuro Neuro: Alert and oriented X 3, Normal speech Results - Vitals Vitals: Vital Signs - 24 hr 06/03/23 14:36 Temperature 36.5 C Heart Rate 80 Respiratory 16 Rate Blood Pressure 140/90 H O2 Saturation 98 Oxygen O2 Source Room air PD Medical Decision Making - ED course Complexity details: considered differential (Does sound like sinus infection and concurrent ear pressure from poor drainage through eustachian tubes. Consider viral vs bacterial by description. ), d/w patient Departure - Departure Disposition: 01 Home, Self Care Clinical Impression: Acute ear pain Sinusitis, acute Qualifiers: Sinusitis location: unspecified location Recurrence: non-recurrent Qualified Code(s): J01.90 - Acute sinusitis, unspecified Condition: Stable Record reviewed to determine appropriate education?: Yes Instructions: ED Sinusitis Abx Tx Prescriptions: Amoxicillin 500 mg PO TID #21 cap Fluticasone [Flonase] 1 sprays JADEN BID 20 Days #16 gm Cetirizine [ZyrTEC] 10 mg PO BID #15 tablet Comments: This does sound like a sinus infection. Your eardrums appear without redness or swelling but there is fluid behind it likely causing the impaired hearing. This would result from improper drainage down by the sinuses. Amoxicillin 3 times a day for a week. Cetirizine antihistamine twice daily for a week as well. Also add fluticasone nasal spray to help with swelling around the sinus openings to promote drainage. Tylenol ibuprofen as needed for pains. I would anticipate improvement over the next several days and resolved by 4 to 5 days. Follow-up with your primary care if not getting better in that timeframe. I sent your prescriptions to [facility] pharmacy. Forms: PCP List Discharge Date/Time: 06/03/23 16:13
[2023-06-03] MEDS ORDERED: AMOXICILLIN 250 MG CAPSULE PO STA (16:06)
== END 2023-06-03 16:13 | disposition home or self-care (01) ==
LOC: ED 14:31
DX: H92.03 Otalgia, bilateral (principal); J01.90 Acute sinusitis, unspecified; F17.200 Nicotine dependence, unspecified, uncomplicated
CPT/HCPCS: 99282; 99283; A9270

== ENCOUNTER 2024-01-22 16:44 | Emergency (ER) | payer OTHER ==
[2024-01-22 16:58] VITALS: BP 138/90; O2SAT 100
--- NOTE | 2024-01-22 17:15 | ED Physician Documentation ---
PD HPI LOWER EXT INJURY - Stated complaint Stated Complaint: RT TOE PX - Chief complaint Chief Complaint: Ext Problem - History obtained from History obtained from: Patient - History of Present Illness PD HPI LOW EXT INJURY LOCATION: Right, Toe Type of injury: Twist (walked in puddle and slipped with twisting of foot. Pain around base of great nd 2nd toes MTP area.) Where injury occurred: Street Timing - onset: Today Timing - details: Abrupt onset, Still present Worsened by: Moving, Palpating Associated symptoms: No: Weakness, Numbness, Swelling Review of Systems Skin: denies: Abrasion (s), Laceration (s) Neurologic: denies: Focal weakness, Numbness PD PAST MEDICAL HISTORY - Past Medical History Cardiovascular: Murmur Respiratory: Asthma Neuro: None Endocrine/Autoimmune: None GI: None : None HEENT: None Psych: Depression, Post traumatic stress disorder Musculoskeletal: None Derm: Eczema - Past Surgical History Past Surgical History: Yes 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 - Present Medications Home Medications: Ambulatory Orders Medication Instructions Recorded Confirmed metFORMIN [Glucophage] 500 mg PO BID 06/27/14 01/22/24 Acyclovir 400 mg ORAL BID 11/05/16 01/22/24 buPROPion HCL [Bupropion Xl] 150 mg ORAL DAILY 11/05/16 01/22/24 cloNIDine HCL [Clonidine HCl] 0.1 mg ORAL QPM 11/05/16 01/22/24 Loratadine [Claritin] 1 tab PO DAILY 02/02/18 01/22/24 Albuterol Sulf [Ventolin Hfa 1 - 2 puffs INH Q4HR PRN 11/20/22 01/22/24 Inhaler] Ascorbic Acid [Vitamin C] 1,000 mg PO BID 11/20/22 01/22/24 Psyllium Husk [Metamucil] 0.4 gm PO DAILY 11/20/22 01/22/24 Vitamin E (Dl,Tocopheryl Acet) 180 mg PO TID 11/20/22 01/22/24 [Vitamin E] Cetirizine [ZyrTEC] 10 mg PO DAILY 01/22/24 01/22/24 Fluticasone [Flonase] 1 sprays JADEN BID PRN 01/22/24 01/22/24 - Allergies Allergies/Adverse Reactions: Allergies Allergy/AdvReac Type Severity Reaction Status Date / Time hydromorphone [From Dilaudid] AdvReac Unknown Verified 06/03/23 14:36 - Social History Does the pt smoke?: No Smoking Status: Never smoker Does the pt drink ETOH?: Yes Does the pt have substance abuse?: No - Immunizations Immunizations are current?: Yes - POLST Patient has POLST: No PD ED PE NORMAL - Vitals Vital signs reviewed: Yes - General General: Alert and oriented X 3, No acute distress, Well developed/nourished - Derm Derm: Normal color, Warm and dry - Extremities Extremities: Other (right base great and second toes with tenderness and some swelling but no edeformity. Good color and cap refill. ) - Neuro Neuro: Alert and oriented X 3, No motor deficit, No sensory deficit Results - Vitals Vitals: Oxygen O2 Source Room air PD Medical Decision Making - ED course Complexity details: reviewed results (foot and toes without fracture on xray. Mechainism is sprain. Can give firm soled shoe and NSAIDs.), considered differential, d/w patient Departure - Departure Disposition: 01 Home, Self Care Clinical Impression: Foot sprain, Accidental fall Condition: Stable Record reviewed to determine appropriate education?: Yes Instructions: ED Sprain Foot Comments: I do not see any fractures on your x-ray. Obviously you are still hurting and presume some spraining of the ligaments and tendons through the foot. Firm soled shoe will help reduce the amount of motion and flex with gait and I will allow for easier healing and less discomfort. Ice elevate and rest your foot often. Tylenol and/or ibuprofen as needed for pains. I would anticipate improvement over the next several days to week or so. Progress activity as tolerated. Forms: PCP List Discharge Date/Time: 01/22/24 17:55
--- NOTE | 2024-01-22 17:29 | XRAY Report ---
PROCEDURE: Foot 3+V RT INDICATIONS: pain, edema status fall TECHNIQUE: 3 views of the foot were acquired. COMPARISON: None. FINDINGS: Bones: No fractures or dislocations. No suspicious bony lesions. Tiny plantar calcaneal enthesophy te is seen Soft tissues: No tibiotalar joint effusion. Achilles tendon appears normal. IMPRESSION: No acute bony abnormality. Reviewed by: Ho Ford MD on 01/22/2024 5:28 PM PDT Approved by: Ho Ford MD on 01/22/2024 5:28 PM PDT Station ID: [id number]
[2024-01-22] MEDS: IBUPROFEN 600 MG TABLET PO STA (17:42)
[2024-01-22] MEDS: ACETAMINOPHEN 500 MG TABLET PO STA (17:42)
== END 2024-01-22 17:55 | disposition home or self-care (01) ==
LOC: ED 16:44
DX: S93.601A Unspecified sprain of right foot, initial encounter (principal); W01.0XXA Fall on same level from slipping, tripping and stumbling without subsequent striking against object, initial encounter
CPT/HCPCS: 73630; 99283; A9270